=== PATIENT | female | born 1995 | race African-American/Black ===

== ENCOUNTER 2018-01-03 22:29 | Emergency (ER) | payer OTHER ==
[2018-01-03] MEDS ORDERED: NEOMY/POLY/HC 1% OTIC DROPS ONE (23:07)
[2018-01-03] MEDS ORDERED: FENTANYL CITR 100 MCG/2 ML ONE (23:08)
[2018-01-03 23:31] LABS: Urine Bacteria <20 /HPF (<20); Urine Culture Reflex Order NOT NEEDED; Urine Mucus 3+ /HPF (NONE SEEN); Urine RBC <5 /HPF (NONE SEEN)
--- NOTE | 2018-01-04 00:07 | ER ---
Nurse's Notes [facility] Name: Tamiko Campo Age: 22 yrs Sex: Female : 1995 Arrival Date: 01/03/2018 Time: 22:30 Bed 14 Private MD: Diagnosis: Low back pain;Acute contact otitis externa-right with TM rupture Presentation: 01/03 22:52 Presenting complaint: Patient states: R low back pain and R ear pain x 2-3 days. aa1 States, "My back pain started after carrying my daughter around on a harness all day but my ear only hurts when I put my finger in it." Denies fever. Transition of care: patient was not received from another setting of care. Onset of symptoms was January 01, 2018. Risk Assessment: Do you want to hurt yourself or someone else? Patient reports no desire to harm self or others. Initial Sepsis Screen: Does the patient meet any 2 criteria? No. Patient's initial sepsis screen is negative. Does the patient have a suspected source of infection? No. Patient's initial sepsis screen is negative. Care prior to arrival: None. 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 - Social history:: Smoking status: Patient/guardian denies using tobacco. - Ebola Screening: : No symptoms or risks identified at this time. Screenin:55 Abuse screen: Denies threats or abuse. Denies injuries from another. Nutritional aa1 screening: No deficits noted. Tuberculosis screening: No symptoms or risk factors identified. Fall Risk None identified. Assessment: 22:55 General: Appears in no apparent distress. uncomfortable, Behavior is calm, cooperative, aa1 appropriate for age. Pain: Complains of pain in right mid back and right ear Pain began 2-3 days ago. Neuro: Level of Consciousness is awake, alert, obeys commands, Oriented to person, place, time, situation, Moves all extremities. Full function Gait is steady. Respiratory: Airway is patent Respiratory effort is even, unlabored, Respiratory pattern is regular, symmetrical. GI: No signs and/or symptoms were reported involving the gastrointestinal system. : Denies burning with urination, inability to void, pain with urination. EENT: Reports pain in right ear. Derm: Skin is intact, is healthy with good turgor, Skin is pink, warm \\T\\ dry. Musculoskeletal: Circulation, motion, and sensation intact. Capillary refill < 3 seconds, Range of motion: intact in all extremities. 01/04 00:15 Reassessment: Patient appears in no apparent distress at this time. Patient is alert, aa1 oriented x 3, equal unlabored respirations, skin warm/dry/pink. Discussed d/c \\T\\ f/u instructions with pt \\T\\ friend; denies questions or concerns at this time Patient states feeling better. Patient states symptoms have improved. Vital Signs: 01/03 22:55 BP 133 / 91; Pulse 86; Resp 16; Temp 98.5; Pulse Ox 100% on R/A; Weight 79.38 kg; aa1 Height 5 ft. 6 in. (167.64 cm); Pain 8/10; 01/04 00:15 BP 119 / 76; Pulse 81; Resp 16; Pulse Ox 100% on R/A; Pain 3/10; aa1 01/03 22:55 Body Mass Index 28.25 (79.38 kg, 167.64 cm) aa1 ED Course: 08 22:30 Patient arrived in ED. am2 22:40 Claire Daniels FNP-C is [facility]. snw 22:40 Ras Vazquez MD is Attending Physician. snw 22:51 Gypsy Palomino, PANKAJ is Primary Nurse. aa1 22:54 Triage completed. aa1 22:55 Arm band placed on right wrist. Patient placed in an exam room, on a stretcher. aa1 22:55 Patient has correct armband on for positive identification. Bed in low position. Call aa1 light in reach. Pulse ox on. NIBP on. 23:07 Urine collected: clean catch specimen. aa1 01/04 00:15 No provider procedures requiring assistance completed. Patient did not have IV access aa1 during this emergency room visit. Administered Medications: 01/03 23:10 Drug: fentaNYL (PF) 25 mcg Route: IM; Site: right gluteus; aa1 01/04 00:15 Follow up: Response: No adverse reaction; Pain is decreased aa01/03 23:10 Drug: Cortisporin Drops 4 drops Route: Otic; Site: right ear; aa1 01/04 00:10 Not Given (changed order): TORadol 60 mg IM once snw Outcome: 00:07 Discharge ordered by MD. snw 00:15 Discharged to home ambulatory, with friend. aa1 00:15 Condition: good 00:15 Discharge instructions given to patient, friend, Instructed on discharge instructions, follow up and referral plans. medication usage, Demonstrated understanding of instructions, follow-up care, medications, Prescriptions given X 3. 00:17 Patient left the ED. aa1 Signatures: Gypsy Palomino RN RN aa1 Claire Daniels, VESSEL CREW MEMBER-C VESSEL CREW MEMBER-Csnw Danielle Napoles
--- NOTE | 2018-01-04 00:07 | EDPHYS ---
Physician Documentation [facility] Name: Tamiko Campo Age: 22 yrs Sex: Female : 1995 Arrival Date: 01/03/2018 Time: 22:30 Bed 14 Private MD: ED Physician Ras Vazquez HPI: 01/03 23:00 This 22 yrs old Black Female presents to ER via Ambulatory with complaints of Ear Pain, snw Back Pain. 23:00 The patient presents with swelling, tenderness. The complaints affect the right ear. snw Onset: The symptoms/episode began/occurred 3 day(s) ago, and became persistent. Associated signs and symptoms: Pertinent positives: also c/o right flank/back pain. Severity of symptoms: At their worst the symptoms were moderate in the emergency department the symptoms are unchanged. The patient has experienced similar episodes in the past. The patient has not recently seen a physician. pt no longer , was seen per ENT in [place] a few months ago and was using Ciprodex but it was stopped second to allergy to the drop. 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 - Social history:: Smoking status: Patient/guardian denies using tobacco. - Ebola Screening: : No symptoms or risks identified at this time. ROS: 22:57 Constitutional: Negative for fever, chills, and weight loss, Eyes: Negative for injury, snw pain, redness, and discharge, Neck: Negative for injury, pain, and swelling, Cardiovascular: Negative for chest pain, palpitations, and edema, Respiratory: Negative for shortness of breath, cough, wheezing, and pleuritic chest pain, Abdomen/GI: Negative for abdominal pain, nausea, vomiting, diarrhea, and constipation, : Negative for injury, bleeding, discharge, and swelling, MS/Extremity: Negative for injury and deformity, Skin: Negative for injury, rash, and discoloration, Neuro: Negative for headache, weakness, numbness, tingling, and seizure. 22:57 ENT: Positive for drainage from ear(s), ear pain, of the right ear. 22:57 Back: Positive for pain at rest, pain with movement, flank pain, of the right mid back, unaware if it is kidney or muscle, pt states the pain started the day after using baby carrier with her daughter. Exam: 22:57 Constitutional: This is a well developed, well nourished patient who is awake, alert, snw and in no acute distress. Head/Face: Normocephalic, atraumatic. Eyes: Pupils equal round and reactive to light, extra-ocular motions intact. Lids and lashes normal. Conjunctiva and sclera are non-icteric and not injected. Cornea within normal limits. Periorbital areas with no swelling, redness, or edema. Neck: Trachea midline, no thyromegaly or masses palpated, and no cervical lymphadenopathy. Supple, full range of motion without nuchal rigidity, or vertebral point tenderness. No Meningismus. Chest/axilla: Normal chest wall appearance and motion. Nontender with no deformity. No lesions are appreciated. Cardiovascular: Regular rate and rhythm with a normal S1 and S2. No gallops, murmurs, or rubs. Normal PMI, no JVD. No pulse deficits. Respiratory: Lungs have equal breath sounds bilaterally, clear to auscultation and percussion. No rales, rhonchi or wheezes noted. No increased work of breathing, no retractions or nasal flaring. Abdomen/GI: Soft, non-tender, with normal bowel sounds. No distension or tympany. No guarding or rebound. No evidence of tenderness throughout. Skin: Warm, dry with normal turgor. Normal color with no rashes, no lesions, and no evidence of cellulitis. MS/ Extremity: Pulses equal, no cyanosis. Neurovascular intact. Full, normal range of motion. Neuro: Awake and alert, GCS 15, oriented to person, place, time, and situation. Cranial nerves II-XII grossly intact. Motor strength 5/5 in all extremities. Sensory grossly intact. Cerebellar exam normal. Normal gait. 22:57 ENT: Ear canal(s): erythema, clear serous fluid, tenderness to inspection with speculum, TM's: rupture, on the right, Nose: is normal, Mouth: is normal, Voice: is normal. 22:57 Back: pain, that is moderate, ROM is painful, CVA tenderness, that is moderate, is noted on the right. Vital Signs: 22:55 BP 133 / 91; Pulse 86; Resp 16; Temp 98.5; Pulse Ox 100% on R/A; Weight 79.38 kg; aa1 Height 5 ft. 6 in. (167.64 cm); Pain 8/10; 01/04 00:15 BP 119 / 76; Pulse 81; Resp 16; Pulse Ox 100% on R/A; Pain 3/10; aa1 01/03 22:55 Body Mass Index 28.25 (79.38 kg, 167.64 cm) aa1 MDM: 01/03 22:55 Patient medically screened. snw 01/04 00:05 Data reviewed: vital signs, nurses notes. Data interpreted: Pulse oximetry: on room air snw is 100 %. Interpretation: normal. Counseling: I had a detailed discussion with the patient and/or guardian regarding: the historical points, exam findings, and any diagnostic results supporting the discharge/admit diagnosis, the presence of at least one elevated blood pressure reading (>120/80) during this emergency department visit, lab results, the need for outpatient follow up, to return to the emergency department if symptoms worsen or persist or if there are any questions or concerns that arise at home. Response to treatment: the patient's symptoms have markedly improved after treatment. Special discussion: I have referred the patient to see his PCP for further evaluation of high blood pressure. Based on the history and exam findings, there is no indication for further emergent testing or inpatient evaluation. I discussed with the patient/guardian the need to see the ENT specialist for further evaluation of the symptoms. I discussed with the patient/guardian the need to see the primary care provider for further evaluation of the symptoms. 01/03 22:57 Order name: Urine Culture [facility] 01/03 22:57 Order name: Urine Microscopic Only; Complete Time: 23:35 [facility] 01/03 23:22 Order name: Urine Dipstick--Ancillary (enter results) [facility] 01/03 23:22 Order name: Urine --Ancillary (enter results) [facility] 01/03 22:56 Order name: [facility] [place]. Order: cortisporin suspension 4gtts to right ear canal; Complete snw Time: 23:19 01/03 22:56 Order name: Urine Test (obtain specimen); Complete Time: 23:19 snw 01/03 22:56 Order name: Urine Dipstick-Ancillary (obtain specimen); Complete Time: 23:19 snw Administered Medications: 01/03 23:10 Drug: fentaNYL (PF) 25 mcg Route: IM; Site: right gluteus; aa1 01/04 00:15 Follow up: Response: No adverse reaction; Pain is decreased aa01/03 23:10 Drug: Cortisporin Drops 4 drops Route: Otic; Site: right ear; aa1 01/04 00:10 Not Given (changed order): TORadol 60 mg IM once snw Disposition: 03:35 Co-signature as Attending Physician, Ras Vazquez MD. harshil Disposition: 01/04/18 00:07 Discharged to Home. Impression: Low back pain, Acute contact otitis externa - right with TM rupture. - Condition is Stable. - Discharge Instructions: Back Pain, Adult, Otitis Externa, Hypertension, Musculoskeletal Pain, Cryotherapy, Rehydration, Adult, Heat Therapy. - Prescriptions for Cortisporin- TC 3.3-3-10-0.5 mg/mL Otic Suspension - instill 4 drop by OTIC route every 6 hours; 1 bottle. Diclofenac Sodium 75 mg Oral Tablet Sustained Release - take 1 tablet by ORAL route 2 times per day; 30 tablet. orphenadrine citrate 100 mg Oral Tablet Sustained Release - take 1 tablet by ORAL route 2 times per day As needed; 20 tablet. - Work release form, Medication Reconciliation Form, Thank You Letter, Antibiotic Education, Prescription Opioid Use form. - Follow up: Emergency Department; When: As needed; Reason: Worsening of condition. Follow up: Private Physician; When: 2 - 3 days; Reason: Recheck today's complaints, Continuance of care, Re-evaluation by your physician. Signatures: Dispatcher [employer] EDGypsy Felipe RN RN aa1 Ras Vazquez MD MD pkClaire Dinh FNP-C SOFTWARE PRODUCT MANAGER-Csnw Corrections: (The following items were deleted from the chart) 00:17 00:07 01/04/2018 00:07 Discharged to Home. Impression: Low back pain; Acute contact aa1 otitis externa - right with TM rupture. Condition is Stable. Forms are Medication Reconciliation Form, Thank You Letter, Antibiotic Education, Prescription Opioid Use. Follow up: Emergency Department; When: As needed; Reason: Worsening of condition. Follow up: Private Physician; When: 2 - 3 days; Reason: Recheck today's complaints, Continuance of care, Re-evaluation by your physician. snw
[2018-01-04 00:21] VITALS: TEMP 98.5; O2SAT 100
[2018-01-04 00:22] VITALS: BP 119/76
[2018-01-04 00:27] LABS: Urine Blood 2+ (NEG); Urine Glucose NEGATIVE (NEG); Urine Protein 1+ (NEG); Urine Specific Gravity >1.030 (1.005-1.030); Urine pH 5.5 (5.0-7.0)
== END 2018-01-04 00:17 | disposition home or self-care (01) ==
LOC: ER 22:29
DX: M54.5 Low back pain (principal); H60.531 Acute contact otitis externa, right ear; H72.91 Unspecified perforation of tympanic membrane, right ear; Z88.1 Allergy status to other antibiotic agents
CPT/HCPCS: 81003; 81015; 81025; 87077; 87086; 87088; 87186; 96372; 99284; J3010

== ENCOUNTER 2018-01-19 07:21 | Emergency (ER) | payer OTHER ==
--- NOTE | 2018-01-19 07:56 | EDPHYS ---
Physician Documentation [facility] Name: Tamiko Campo Age: 22 yrs Sex: Female : 1995 Arrival Date: 01/19/2018 Time: 07:25 Bed 20 Private MD: None, None ED Physician Dean Hernandez HPI: 01/19 07:40 This 22 yrs old Black Female presents to ER via Ambulatory with complaints of Ear Pain. cp 07:40 The patient presents with drainage, that is purulent, a fullness. The complaints affect cp the right ear. 07:40 Associated signs and symptoms: Pertinent positives: sore throat, Pertinent negatives: cp cough, fever, sinus trouble, vomiting. Severity of symptoms: in the emergency department the symptoms are unchanged. 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 - Social history:: Smoking status: Patient/guardian denies using tobacco. - Ebola Screening: : Patient negative for fever greater than or equal to 101.5 degrees Fahrenheit, and additional compatible Ebola Virus Disease symptoms. ROS: 07:45 Constitutional: Negative for body aches, chills, fever, poor PO intake. cp 07:45 Eyes: Negative for injury, pain, redness, and discharge. cp 07:45 ENT: Positive for drainage from ear(s), ear pain, sore throat, Negative for rhinorrhea, difficulty swallowing, difficulty handling secretions. 07:45 Neck: Negative for pain with movement, pain at rest, stiffness, tenderness. 07:45 Respiratory: Negative for cough, wheezing. 07:45 Abdomen/GI: Negative for abdominal pain, nausea, vomiting, and diarrhea. 07:45 Skin: Negative for cellulitis, rash. 07:45 Neuro: Negative for headache. 07:45 All other systems are negative. Exam: 07:50 Constitutional: The patient appears in no acute distress, alert, awake, non-toxic, well cp developed, well nourished. 07:50 Head/Face: Normocephalic, atraumatic. cp 07:50 Eyes: Periorbital structures: appear normal, Conjunctiva: normal, no exudate, no injection, Lids and lashes: appear normal, bilaterally. 07:50 ENT: External ear(s): are unremarkable, Ear canal(s): purulent discharge, that is moderate, in the right canal, TM's: not visable, because of discharge, Examination of the other ear shows no obvious abnormality, Nose: is normal, Mouth: is normal, Posterior pharynx: is normal, airway is patent. 07:50 Neck: ROM/movement: is normal, is supple, without pain, no range of motions limitations, no nuchal rigidity, Lymph nodes: no appreciated lymphadenopathy. 07:50 Chest/axilla: Inspection: normal. 07:50 Cardiovascular: Rate: normal. 07:50 Respiratory: the patient does not display signs of respiratory distress, Respirations: normal, no use of accessory muscles, no retractions, no splinting, no tachypnea. 07:50 Skin: cellulitis, is not appreciated, no rash present. Vital Signs: 07:30 BP 113 / 68; Pulse 67; Resp 16; Temp 98.2(O); Pulse Ox 100% on R/A; Weight 74.84 kg; rb1 Height 5 ft. 6 in. (167.64 cm) (R); Pain 6/10; 07:30 Body Mass Index 26.63 (74.84 kg, 167.64 cm) rb1 MDM: 07:30 Patient medically screened. cp 07:50 Differential diagnosis: otitis media, otitis externa, ruptured TM, foreign body, cp cerumen impaction. 07:54 Data reviewed: vital signs, nurses notes, old medical records, notes from previous ED cp visits and as a result, I will discharge patient. Administered Medications: No medications were administered Disposition: 01/20 02:39 Co-signature as Attending Physician, Dean Hernandez MD I agree with the assessment and tw4 plan of care. Attestation: The patient's history, exam findings, diagnostics, and a summary of any interventions or procedures was reviewed in detail with Natalio ROCHE. Disposition: 01/19/18 07:55 Discharged to Home. Impression: Acute suppurative otitis media with spontaneous rupture of ear drum, right ear. - Condition is Stable. - Discharge Instructions: Otitis Media, Adult. - Prescriptions for Augmentin 875- 125 mg Oral Tablet - take 1 tablet by ORAL route every 12 hours for 10 days; 20 tablet. - Medication Reconciliation Form, Thank You Letter, Antibiotic Education, Prescription Opioid Use form. - Follow up: Catalina Posadas MD; When: 2 - 3 days; Reason: Recheck today's complaints. - Problem is new. - Symptoms are unchanged. Signatures: Natalio Beltran PA PA cp Barber, Rebecca, RN RN rb1 Dean Hernandez MD MD tw4 Corrections: (The following items were deleted from the chart) 01/19 08:02 07:55 01/19/2018 07:55 Discharged to Home. Impression: Acute suppurative otitis media rb1 with spontaneous rupture of ear drum, right ear. Condition is Stable. Forms are Medication Reconciliation Form, Thank You Letter, Antibiotic Education, Prescription Opioid Use. Follow up: Catalina Posadas; When: 2 - 3 days; Reason: Recheck today's complaints. Problem is new. Symptoms are unchanged. cp
--- NOTE | 2018-01-19 07:56 | ER ---
Nurse's Notes [facility] Name: Tamiko Campo Age: 22 yrs Sex: Female : 1995 Arrival Date: 01/19/2018 Time: 07:25 Bed 20 Private MD: None, None Diagnosis: Acute suppurative otitis media with spontaneous rupture of ear drum, right ear Presentation: 01/19 07:30 Presenting complaint: Patient states: C/o right ear pain, pt. thinks her ear drum rb1 ruptured. Transition of care: patient was not received from another setting of care. Onset of symptoms is unknown. Risk Assessment: Do you want to hurt yourself or someone else? Patient reports no desire to harm self or others. Initial Sepsis Screen: Does the patient meet any 2 criteria? No. Patient's initial sepsis screen is negative. Does the patient have a suspected source of infection? No. Patient's initial sepsis screen is negative. Care prior to arrival: None. 07:30 Method Of Arrival: Ambulatory rb1 07:30 Acuity: MARCY 4 rb1 Triage Assessment: 07:30 General: Appears in no apparent distress. comfortable, Behavior is calm, cooperative. rb1 Pain: Complains of pain in right ear Pain currently is 6 out of 10 on a pain scale. EENT: Reports pain when swallowing. Neuro: Level of Consciousness is awake, alert, obeys commands, Oriented to person, place, time, situation. Cardiovascular: Capillary refill < 3 seconds is brisk in bilateral fingers. Respiratory: Airway is patent Respiratory effort is even, unlabored, Respiratory pattern is regular, symmetrical. GI: No signs and/or symptoms were reported involving the gastrointestinal system. : No signs and/or symptoms were reported regarding the genitourinary system. Derm: Skin is dry, Skin is normal, Skin temperature is warm. 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 - Social history:: Smoking status: Patient/guardian denies using tobacco. - Ebola Screening: : Patient negative for fever greater than or equal to 101.5 degrees Fahrenheit, and additional compatible Ebola Virus Disease symptoms. Screenin:30 Abuse screen: Denies threats or abuse. Nutritional screening: No deficits noted. rb1 Tuberculosis screening: No symptoms or risk factors identified. Fall Risk None identified. Assessment: 07:30 General: See triage assessment. rb1 Vital Signs: 07:30 BP 113 / 68; Pulse 67; Resp 16; Temp 98.2(O); Pulse Ox 100% on R/A; Weight 74.84 kg; rb1 Height 5 ft. 6 in. (167.64 cm) (R); Pain 6/10; 07:30 Body Mass Index 26.63 (74.84 kg, 167.64 cm) rb1 ED Course: 07:25 Patient arrived in ED. sb2 07:25 None, None is Private Physician. sb2 07:30 Natalio Beltran PA is PHCP. cp 07:30 Dean Hernandez MD is Attending Physician. cp 07:30 Arm band placed on right wrist. rb1 07:30 Patient has correct armband on for positive identification. Bed in low position. Call rb1 light in reach. Side rails up X 1. Pulse ox on. NIBP on. 07:37 Olivia Blackwell, RN is Primary Nurse. rb1 07:39 Triage completed. rb1 07:55 Catalina Posadas MD is Referral Physician. cp 08:01 No provider procedures requiring assistance completed. Patient did not have IV access rb1 during this emergency room visit. Administered Medications: No medications were administered Outcome: 07:55 Discharge ordered by . cp 08:01 Discharged to home ambulatory. rb1 08:01 Condition: stable 08:01 Discharge instructions given to patient, Instructed on discharge instructions, follow up and referral plans. medication usage, Demonstrated understanding of instructions, follow-up care, medications, Prescriptions given X 1. 08:02 Patient left the ED. rb1 Signatures: Natalio Beltran PA PA cp Olivia Blackwell, RN RN rb1 Ibeth Quiros sb2
[2018-01-19 08:07] VITALS: BP 113/68; TEMP 98.2; O2SAT 100
== END 2018-01-19 08:02 | disposition home or self-care (01) ==
LOC: ER 07:21
DX: H66.011 Acute suppurative otitis media with spontaneous rupture of ear drum, right ear (principal); Z88.1 Allergy status to other antibiotic agents
CPT/HCPCS: 99283

== ENCOUNTER 2018-04-25 10:14 | Emergency (ER) | payer OTHER ==
[2018-04-25] MEDS ORDERED: KETOROLAC 30 MG/ML INJ ONE (11:07)
[2018-04-25 11:21] LABS: Urine Blood 3+ (NEG); Urine Glucose NEGATIVE (NEG); Urine Protein 2+ (NEG)
[2018-04-25 11:28] LABS: Urine Bacteria 20-50 /HPF (<20); Urine Culture Reflex Order REFLEXED
--- NOTE | 2018-04-25 11:45 | EDPHYS ---
Physician Documentation [facility] Name: Tamiko Campo Age: 22 yrs Sex: Female : 1995 Arrival Date: 04/25/2018 Time: 10:18 Bed 13 Private MD: None, None ED Physician Natalio Hansen HPI: 04/25 10:39 This 22 yrs old Black Female presents to ER via Ambulatory with complaints of Back Pain.cp 10:39 The patient presents with pain that is acute, with no known mechanism of injury. The cp symptoms are located in the low back. Onset: The symptoms/episode began/occurred 5 day(s) ago. The pain does not radiate. Associated signs and symptoms: Pertinent positives: urinary frequency, Pertinent negatives: abdominal pain, chest pain, constipation, dysuria, fever, hematuria, incontinence, numbness, urinary retention, weakness. The problem was sustained from unknown cause. 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 - Social history:: Smoking status: Patient/guardian denies using tobacco, Patient/guardian denies using alcohol. - Ebola Screening: : Patient negative for fever greater than or equal to 101.5 degrees Fahrenheit, and additional compatible Ebola Virus Disease symptoms Patient denies exposure to infectious person Patient denies travel to an Ebola-affected area in the 21 days before illness onset. ROS: 10:40 Eyes: Negative for injury, pain, redness, and discharge. cp 10:40 Constitutional: Negative for body aches, chills, fever, poor PO intake. 10:40 ENT: Negative for drainage from ear(s), ear pain, sore throat, difficulty swallowing, difficulty handling secretions. 10:40 Cardiovascular: Negative for chest pain, edema, palpitations. 10:40 Respiratory: Negative for cough, shortness of breath, wheezing. 10:40 Abdomen/GI: Negative for abdominal pain, nausea, vomiting, and diarrhea, constipation, black/tarry stool, rectal bleeding. 10:40 Back: Positive for pain at rest, of the low back area, Negative for injury or acute deformity, decreased range of motion. 10:40 : Positive for urinary frequency, vaginal bleeding, Negative for burning with urination, difficulty urinating, bladder incontinence. 10:40 MS/extremity: Negative for injury or acute deformity, decreased range of motion, paresthesias. 10:40 Skin: Negative for cellulitis, rash. 10:40 Neuro: Negative for altered mental status, dizziness, headache, numbness, weakness. 10:40 All other systems are negative. Exam: 10:45 Constitutional: The patient appears in no acute distress, alert, awake, well developed, cp well nourished. 10:45 Head/Face: Normocephalic, atraumatic. cp 10:45 Eyes: Periorbital structures: appear normal, Conjunctiva: normal, no exudate, no injection, Lids and lashes: appear normal, bilaterally. 10:45 ENT: External ear(s): are unremarkable, Nose: is normal, Mouth: Lips: moist, Oral mucosa: moist, Posterior pharynx: is normal, airway is patent, no erythema, no exudate. 10:45 Neck: ROM/movement: is normal, is supple, without pain, no range of motions limitations, no nuchal rigidity. 10:45 Chest/axilla: Inspection: normal, Palpation: is normal, no crepitus, no tenderness. 10:45 Cardiovascular: Rate: normal, Rhythm: regular. 10:45 Respiratory: the patient does not display signs of respiratory distress, Respirations: normal, no use of accessory muscles, no retractions, no splinting, no tachypnea, Breath sounds: are clear throughout, no decreased breath sounds, no stridor, no wheezing. 10:45 Abdomen/GI: Inspection: abdomen appears normal, Palpation: abdomen is soft and non-tender, in all quadrants. 10:45 Back: pain, that is mild, of the low back area, ROM is normal, Straight leg raises: of both lower extremities does not illicit pain. 10:45 Musculoskeletal/extremity: Exam is negative for decreased range of motion, deformity, injury. 10:45 Skin: cellulitis, is not appreciated, no rash present. 10:45 Neuro: Orientation: to person, place \T\ time. Mentation: is normal, Motor: moves all fours, strength is normal, Sensation: is normal, Gait: is steady. Vital Signs: 10:38 BP 126 / 98; Pulse 89; Resp 18; Temp 98.1(O); Pulse Ox 97% on R/A; Weight 65.77 kg; hj Height 5 ft. 5 in. (165.10 cm); Pain 10; 12:03 BP 125 / 90; Pulse 85; Resp 18; Pulse Ox 100% on R/A; hj 10:38 Body Mass Index 24.13 (65.77 kg, 165.10 cm) hj MDM: 10:32 Patient medically screened. cody 11:44 Data reviewed: vital signs, nurses notes, lab test result(s), and as a result, I will cp discharge patient. 11:44 Counseling: I had a detailed discussion with the patient and/or guardian regarding: the cp historical points, exam findings, and any diagnostic results supporting the discharge/admit diagnosis, lab results, the need for outpatient follow up, a family practitioner, to return to the emergency department if symptoms worsen or persist or if there are any questions or concerns that arise at home. 04/25 10:54 Order name: Urine Microscopic Only; Complete Time: 11:42 cp 04/25 11:42 Interpretation: Normal except: UWBC >50; URBC 5-10; UBACT 20-50; SQEPI 10-20. 04/25 11:03 Order name: Urine Dipstick--Ancillary (enter results); Complete Time: 11:23 eb 04/25 11:23 Interpretation: Normal except: UBLD 3+; UPROT 2+; UESTR 3+. cp 04/25 10:38 Order name: Urine Dipstick-Ancillary (obtain specimen); Complete Time: 11:05 cp 04/25 11:03 Order name: Urine --Ancillary (enter results); Complete Time: 11:23 eb 04/25 11:30 Order name: Urine Culture EDMS 04/25 10:38 Order name: Urine Test (obtain specimen); Complete Time: 11:05 cp Administered Medications: 11:05 Drug: TORadol 60 mg Route: IM; Site: right gluteus; hj 12:00 Follow up: Response: No adverse reaction; Pain is decreased hj Disposition: 04/26 08:14 Co-signature as Attending Physician, Natalio Hansen MD I agree with the assessment and cody plan of care. Disposition: 04/25/18 11:45 Discharged to Home. Impression: Low back pain. - Condition is Stable. - Discharge Instructions: Back Pain, Adult, Back Exercises. - Prescriptions for Anaprox DS 550 mg Oral Tablet - take 1 tablet by ORAL route every 12 hours As needed; 20 tablet. Macrobid 100 mg Oral Capsule - take 1 capsule by ORAL route every 12 hours for 7 days; 14 capsule. - Medication Reconciliation Form, Thank You Letter, Antibiotic Education, Prescription Opioid Use form. - Follow up: Private Physician; When: 2 - 3 days; Reason: pain continues. - Problem is new. - Symptoms have improved. Signatures: Dispatcher [employer] EDNatalio Shay MD MD cha Joaquin, Henry RN RN hj Natalio Beltran PA PA cp Corrections: (The following items were deleted from the chart) 04/25 12:01 11:45 04/25/2018 11:45 Discharged to Home. Impression: Low back pain. Condition is hj Stable. Forms are Medication Reconciliation Form, Thank You Letter, Antibiotic Education, Prescription Opioid Use. Follow up: Private Physician; When: 2 - 3 days; Reason: pain continues. Problem is new. Symptoms have improved. cp
--- NOTE | 2018-04-25 11:45 | ER ---
Nurse's Notes [facility] Name: Tamiko Campo Age: 22 yrs Sex: Female : 1995 Arrival Date: 04/25/2018 Time: 10:18 Bed 13 Private MD: None, None Diagnosis: Low back pain Presentation: 04/25 10:35 Presenting complaint: Patient states: since Thursday i had this pain on my lower back, hj on both sides, i have history of kidney infection or muscle aches; denies fever and chills, denies N/V;. Transition of care: patient was not received from another setting of care. Onset of symptoms was April 25, 2018. Risk Assessment: Do you want to hurt yourself or someone else? Patient reports no desire to harm self or others. Initial Sepsis Screen: Does the patient meet any 2 criteria? No. Patient's initial sepsis screen is negative. Does the patient have a suspected source of infection? No. Patient's initial sepsis screen is negative. Care prior to arrival: None. 10:35 Method Of Arrival: Ambulatory 10:35 Acuity: MARCY 3 Triage Assessment: 10:38 General: Appears in no apparent distress. uncomfortable, Behavior is calm, cooperative, hj appropriate for age. Pain: Complains of pain in left low back and right low back. Musculoskeletal: Circulation, motion, and sensation intact. Capillary refill < 3 seconds, Range of motion: intact in all extremities. 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 - Social history:: Smoking status: Patient/guardian denies using tobacco, Patient/guardian denies using alcohol. - Ebola Screening: : Patient negative for fever greater than or equal to 101.5 degrees Fahrenheit, and additional compatible Ebola Virus Disease symptoms Patient denies exposure to infectious person Patient denies travel to an Ebola-affected area in the 21 days before illness onset. Screenin:38 Abuse screen: Denies threats or abuse. Denies injuries from another. Nutritional hj screening: No deficits noted. Tuberculosis screening: No symptoms or risk factors identified. Fall Risk None identified. Vital Signs: 10:38 BP 126 / 98; Pulse 89; Resp 18; Temp 98.1(O); Pulse Ox 97% on R/A; Weight 65.77 kg; hj Height 5 ft. 5 in. (165.10 cm); Pain 5/10; 12:03 BP 125 / 90; Pulse 85; Resp 18; Pulse Ox 100% on R/A; hj 10:38 Body Mass Index 24.13 (65.77 kg, 165.10 cm) ED Course: 10:18 Patient arrived in ED. mr 10:18 None, None is Private Physician. mr 10:31 Natalio Beltran PA is PHCP. cp 10:32 Natalio Hansen MD is Attending Physician. cp 10:35 Deon Maza, RN is Primary Nurse. hj 10:37 Triage completed. hj 10:38 Arm band placed on right wrist. hj 10:40 Patient has correct armband on for positive identification. Bed in low position. Call hj light in reach. Side rails up X 1. 11:05 Urine Microscopic Only Sent. hj 12:00 No provider procedures requiring assistance completed. Patient did not have IV access hj during this emergency room visit. Administered Medications: 11:05 Drug: TORadol 60 mg Route: IM; Site: right gluteus; hj 12:00 Follow up: Response: No adverse reaction; Pain is decreased Outcome: 11:45 Discharge ordered by MD. cp 12:01 Discharged to home ambulatory. hj 12:01 Condition: stable 12:01 Discharge instructions given to patient, Instructed on discharge instructions, follow up and referral plans. medication usage, Demonstrated understanding of instructions, follow-up care, medications, Prescriptions given X 2. 12:01 Patient left the ED. hj Addendum: 04/29/2018 07:15 Addendum: Culture Results: Positive urine culture. No further action required. Bacteria i w sensitive to prescribed antibiotic. Signatures: Sara Roberto Rosalia Stallworth RN RN Deon Maza RN RN Natalio Beltran PA PA cp
[2018-04-25 12:17] VITALS: BP 126/98; TEMP 98.1; O2SAT 97
== END 2018-04-25 12:01 | disposition home or self-care (01) ==
LOC: ER 10:14
DX: M54.5 Low back pain (principal)
CPT/HCPCS: 81003; 81015; 81025; 87077; 87086; 87088; 87186; 96372; 99283

== ENCOUNTER 2018-05-29 02:35 | Emergency (ER) | payer OTHER ==
--- NOTE | 2018-05-29 02:56 | ER ---
Nurse's Notes [facility] Name: Tamiko Campo Age: 22 yrs Sex: Female : 1995 Arrival Date: 05/29/2018 Time: 02:39 Bed 23 Private MD: Yamile Castro Diagnosis: Hordeolum externum Presentation: 05/29 02:53 Presenting complaint: Patient states: she has a swollen left lower eyelid pt was seen bb at Urgent Care today and given eye drops Tobramycin and Bactrim but lid is still swollen and painful. Transition of care: patient was not received from another setting of care. Onset of symptoms was May 27, 2018. Risk Assessment: Do you want to hurt yourself or someone else? Patient reports no desire to harm self or others. Initial Sepsis Screen: Does the patient meet any 2 criteria? No. Patient's initial sepsis screen is negative. Does the patient have a suspected source of infection? No. Patient's initial sepsis screen is negative. Care prior to arrival: None. 02:53 Method Of Arrival: Ambulatory bb 02:53 Acuity: MARCY 4 bb RN HEDIS: 02:55 LMP 05/20/2018 bb Historical: - Allergies: 02:55 Cipro; bb - PSHx: 02:55 ; bb - Immunization history:: Adult Immunizations up to date. - Social history:: Smoking status: unknown. - Ebola Screening: : No symptoms or risks identified at this time. Screenin:56 Abuse screen: Denies threats or abuse. Nutritional screening: No deficits noted. bb Tuberculosis screening: No symptoms or risk factors identified. Fall Risk None identified. Assessment: 02:56 General: Appears in no apparent distress. uncomfortable, Behavior is calm, cooperative. bb Pain: Complains of pain in left lower lid Pain currently is 5 out of 10 on a pain scale. Neuro: Level of Consciousness is awake, alert, obeys commands, Oriented to person, place, time, situation. Cardiovascular: No deficits noted. Respiratory: Respiratory effort is even, unlabored. GI: No signs and/or symptoms were reported involving the gastrointestinal system. EENT: Eyes swelling, redness to left lower lid with drainage. Musculoskeletal: Circulation, motion, and sensation intact. 02:58 Reassessment: Kali ROCHE at bedside for evaluation and expressed pus from left lower bb lid pt tolerated poorly. 03:08 Reassessment: Patient is alert, oriented x 3, equal unlabored respirations, skin bb warm/dry/pink. pt verbalized understanding of and agrees to plan of care discharge instructions given pt ambulated with steady gait to exit. Vital Signs: 02:55 BP 126 / 90; Pulse 68; Resp 16 S; Temp 99.4(O); Pulse Ox 100% on R/A; Weight 72.57 kg bb (R); Height 5 ft. 6 in. (167.64 cm) (R); Pain 5/10; 02:55 Body Mass Index 25.82 (72.57 kg, 167.64 cm) bb ED Course: 02:39 Patient arrived in ED. es 02:39 Yamile Castro MD is Private Physician. es 02:40 [facility] jr[facility] 02:40 Colin Russell MD is Attending Physician. jr8 02:54 Meng Maddox MD is Referral Physician. jr8 02:55 Triage completed. bb 02:55 Arm band placed on Patient placed in an exam room. bb 02:56 Patient has correct armband on for positive identification. Bed in low position. bb 02:56 No provider procedures requiring assistance completed. Patient did not have IV access bb during this emergency room visit. Administered Medications: 03:00 Drug: TORadol 60 mg Route: IM; Site: left gluteus; bb 03:09 Follow up: Response: No adverse reaction bb Outcome: 02:55 Discharge ordered by . jr8 03:09 Discharged to home ambulatory. bb 03:09 Condition: stable 03:09 Discharge instructions given to patient, Instructed on discharge instructions, follow up and referral plans. medication usage, wound care, Demonstrated understanding of instructions, follow-up care, medications, wound care, Prescriptions given X 1. 03:09 Patient left the ED. bb Signatures: Dipti Brown Brenda, RN RN bb Puneet Alexander PA PA jr8
--- NOTE | 2018-05-29 02:56 | EDPHYS ---
Physician Documentation [facility] Name: Tamiko Campo Age: 22 yrs Sex: Female : 1995 Arrival Date: 05/29/2018 Time: 02:39 Bed 23 Private MD: Yamile Castro ED Physician Colin Russell HPI: 05/29 03:10 This 22 yrs old Black Female presents to ER via Ambulatory with complaints of Eye jr8 Problem. 03:10 The patient is experiencing pain, redness, to the left eye. Onset: The symptoms/episode jr8 began/occurred acutely, 2 day(s) ago. Duration: the symptoms are continuous. Aggravated by blinking, pressure, rubbing, Alleviated by nothing. Associated signs and symptoms: Pertinent positives: None. Severity of symptoms: At their worst the symptoms were mild. The patient has not experienced similar symptoms in the past. The patient has been recently seen at an urgent care. Patient has stye to left eye. Saw urgent care and was given antibiotics and eye drops. Came to ED tonight for worsening of symptoms. 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 - Social history:: Smoking status: unknown. - Ebola Screening: : No symptoms or risks identified at this time. ROS: 03:10 ENT: Negative for injury, pain, and discharge, Neck: Negative for injury, pain, and jr8 swelling, Cardiovascular: Negative for chest pain, palpitations, and edema, Respiratory: Negative for shortness of breath, cough, wheezing, and pleuritic chest pain, Abdomen/GI: Negative for abdominal pain, nausea, vomiting, diarrhea, and constipation, Back: Negative for injury and pain, MS/Extremity: Negative for injury and deformity, Skin: Negative for injury, rash, and discoloration, Neuro: Negative for headache, weakness, numbness, tingling, and seizure. 03:10 Eyes: Positive for pain, redness, swelling, of the left lower eyelid. Exam: 03:10 Head/Face: Normocephalic, atraumatic. ENT: Nares patent. No nasal discharge, no jr8 septal abnormalities noted. Tympanic membranes are normal and external auditory canals are clear. Oropharynx with no redness, swelling, or masses, exudates, or evidence of obstruction, uvula midline. Mucous membranes moist. Neck: Trachea midline, no thyromegaly or masses palpated, and no cervical lymphadenopathy. Supple, full range of motion without nuchal rigidity, or vertebral point tenderness. No Meningismus. Cardiovascular: Regular rate and rhythm with a normal S1 and S2. No gallops, murmurs, or rubs. Normal PMI, no JVD. No pulse deficits. Respiratory: Lungs have equal breath sounds bilaterally, clear to auscultation and percussion. No rales, rhonchi or wheezes noted. No increased work of breathing, no retractions or nasal flaring. Skin: Warm, dry with normal turgor. Normal color with no rashes, no lesions, and no evidence of cellulitis. MS/ Extremity: Pulses equal, no cyanosis. Neurovascular intact. Full, normal range of motion. Neuro: Awake and alert, GCS 15, oriented to person, place, time, and situation. Cranial nerves II-XII grossly intact. Motor strength 5/5 in all extremities. Sensory grossly intact. Cerebellar exam normal. Normal gait. 03:10 Eyes: Periorbital structures: swelling, that is mild, on the left lower eyelid, Pupils: equal, round, and reactive to light and accomodation, Extraocular movements: intact throughout, Conjunctiva: tearing noted, in left eye, Corneas: are normal, Sclera: no appreciated abnormality, Anterior chamber: normal, Lids and lashes: stye, on the left lid, pointing noted to stye with purulent discharge . Vital Signs: 02:55 BP 126 / 90; Pulse 68; Resp 16 S; Temp 99.4(O); Pulse Ox 100% on R/A; Weight 72.57 kg bb (R); Height 5 ft. 6 in. (167.64 cm) (R); Pain 5/10; 02:55 Body Mass Index 25.82 (72.57 kg, 167.64 cm) bb MDM: 02:40 Patient medically screened. jr8 02:53 Data reviewed: vital signs, nurses notes, and as a result, I will discharge patient. jr8 Data interpreted: Pulse oximetry: on room air is 100 %. Interpretation: normal. Counseling: I had a detailed discussion with the patient and/or guardian regarding: the historical points, exam findings, and any diagnostic results supporting the discharge/admit diagnosis, the need for outpatient follow up, an opthalmologist, to return to the emergency department if symptoms worsen or persist or if there are any questions or concerns that arise at home. 03:10 ED course: Was able to lightly express out moderate amount of discharge from [facility]. Told jr8 patient to continue eye drops and oral antibiotics given. To do warm compresses for 15-20 min at a time 4-5 times a day. Follow up with ophthalmology . Administered Medications: 03:00 Drug: TORadol 60 mg Route: IM; Site: left gluteus; bb 03:09 Follow up: Response: No adverse reaction bb Disposition: 06:46 Co-signature as Attending Physician, Colin Russell MD I agree with the assessment and kdr plan of care. Disposition: 05/29/18 02:55 Discharged to Home. Impression: Hordeolum externum. - Condition is Stable. - Discharge Instructions: [facility]. - Prescriptions for Ibuprofen 800 mg Oral Tablet - take 1 tablet by ORAL route every 8 hours As needed take with food; 30 tablet. - Medication Reconciliation Form, Thank You Letter, Antibiotic Education, Prescription Opioid Use form. - Follow up: Meng Maddox MD; When: 5 - 6 days; Reason: Recheck today's complaints, Continuance of care, Re-evaluation by your physician. - Problem is new. - Symptoms have improved. Signatures: Colin Russell MD MD [facility] Elizabeth RN RN bb Puneet Alexander PA PA jr8 Corrections: (The following items were deleted from the chart) 03:09 02:55 05/29/2018 02:55 Discharged to Home. Impression: Hordeolum externum. Condition is bb Stable. Forms are Medication Reconciliation Form, Thank You Letter, Antibiotic Education, Prescription Opioid Use. Follow up: Meng Maddox; When: 5 - 6 days; Reason: Recheck today's complaints, Continuance of care, Re-evaluation by your physician. Problem is new. Symptoms have improved. jr8
[2018-05-29] MEDS ORDERED: KETOROLAC 30 MG/ML INJ ONE (03:12)
[2018-05-29 03:34] VITALS: BP 126/90; TEMP 99.4; O2SAT 100
== END 2018-05-29 03:09 | disposition home or self-care (01) ==
LOC: ER 02:35
DX: H00.015 Hordeolum externum left lower eyelid (principal)
CPT/HCPCS: 96372; 99283

== ENCOUNTER 2019-08-05 12:35 | Emergency (ER) | payer OTHER, SELFPAY ==
[2019-08-05] MEDS ORDERED: ACETAMINOPHEN 500 MG TAB ONE (14:04)
--- NOTE | 2019-08-05 14:18 | RAD REPORT ---
EXAM DESCRIPTION: CT - Head Brain Wo Cont - 08/05/2019 2:04 pm CLINICAL HISTORY: Head trauma with headache COMPARISON: None TECHNIQUE: Computed axial tomography of the head was obtained. IV contrast was not requested. All CT scans are performed using dose optimization technique as appropriate and may include automated exposure control or mA/KV adjustment according to patient size. FINDINGS: An intracranial bleed is not seen . The ventricles are normal in caliber. No extra-axial fluid collection is noted. Mild to moderate low-density areas within periventricular, deep and subcortical white matter likely r epresent ischemic changes secondary to small vessel disease. Fluid within the sinuses/ mastoids is not seen. IMPRESSION: No acute intracranial abnormality is seen. If patient's symptoms persist MRI of the bra in would be recommended.
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
[2019-08-05 15:01] LABS: Urine Blood NEGATIVE (NEG); Urine Glucose NEGATIVE (NEG); Urine Protein 2+ (NEG); Urine pH 5.5 (5.0-7.0)
[2019-08-05 16:04] VITALS: TEMP 98.5; O2SAT 100
[2019-08-05 16:06] VITALS: BP 117/69
== END 2019-08-05 15:48 | disposition home or self-care (01) ==
LOC: ER 12:35
DX: S06.0X0A Concussion without loss of consciousness, initial encounter (principal); Y04.2XXA Assault by strike against or bumped into by another person, initial encounter; Y93.9 Activity, unspecified; Y92.9 Unspecified place or not applicable; Z04.71 Encounter for examination and observation following alleged adult physical abuse; Z88.1 Allergy status to other antibiotic agents
CPT/HCPCS: 70450; 81003; 81025; 99283

== ENCOUNTER 2019-10-13 08:26 | Emergency (ER) | payer SELFPAY ==
--- NOTE | 2019-10-13 11:14 | ER ---
Nurse's Notes [facility] Name: Tamiko Campo Age: 24 yrs Sex: Female : 1995 Arrival Date: 10/13/2019 Time: 08:28 Bed 12 Private MD: None, None Diagnosis: Cellulitis and acute lymphangitis of face-left upper lid stye Presentation: 10/12 08:39 Chief complaint: Patient states: Swelling to L upper eyelid that began 2-3 days ago. ss Coronavirus screen: Proceed with normal triage. Patient denies a cough. Patient denies shortness of breath or difficulty breathing. Patient denies measured and/or subjective temperature greater than 100.4F prior to today's visit. Patient denies travel on a cruise ship or to a country the [facility] currently lists as an affected area. Patient denies contact with known and/or suspected case of COVID-19. Ebola Screen: Patient denies exposure to infectious person. Patient denies travel to an Ebola-affected area in the 21 days before illness onset. Initial Sepsis Screen: Does the patient meet any 2 criteria? No. Patient's initial sepsis screen is negative. Does the patient have a suspected source of infection? No. Patient's initial sepsis screen is negative. Risk Assessment: Do you want to hurt yourself or someone else? Patient reports no desire to harm self or others. Onset of symptoms was October 10, 2019. 08:39 Method Of Arrival: Ambulatory ss 08:39 Acuity: MARCY 5 ss Historical: - Allergies: 08:41 Cipro; ss - PMHx: 08:41 Anemia; ss - PSHx: 08:41 ; ss - Immunization history:: Adult Immunizations up to date. - Social history:: Smoking status: Patient denies any tobacco usage or history of. - Family history:: not pertinent. Screenin:39 Abuse screen: Denies threats or abuse. Denies injuries from another. Nutritional ss screening: No deficits noted. Tuberculosis screening: Never had TB. Fall Risk None identified. Assessment: 08:39 General: Appears uncomfortable, Behavior is calm, cooperative. Pain: Complains of pain ss in left cheek and left eye Pain currently is 7 out of 10 on a pain scale. Quality of pain is described as aching, tender, Pain began 2-3 days ago. Is continuous. Neuro: Level of Consciousness is awake, alert, obeys commands, Oriented to person, place, time, situation. Respiratory: Airway is patent Respiratory effort is even, unlabored, Respiratory pattern is regular, symmetrical. GI: Patient currently denies diarrhea, nausea, vomiting. EENT: Nares are clear Oral mucosa is moist. Derm: Skin is intact, is healthy with good turgor, Skin is pink, warm \T\ dry. normal. Musculoskeletal: Circulation, motion, and sensation intact. Range of motion: intact in all extremities, Swelling absent. 10:57 Reassessment: Patient appears in no apparent distress at this time. Patient and/or ss family updated on plan of care and expected duration. Pain level reassessed. Patient is alert, oriented x 3, equal unlabored respirations, skin warm/dry/pink. Vital Signs: 08:39 BP 127 / 70; Pulse 90; Resp 16; Temp 98.0(TE); Pulse Ox 100% on R/A; Weight 77.11 kg; ss Height 5 ft. 6 in. (167.64 cm); Pain 7/10; 08:39 Body Mass Index 27.44 (77.11 kg, 167.64 cm) ED Course: 08:28 Patient arrived in ED. mr 08:29 None, None is Private Physician. mr 08:39 Patient has correct armband on for positive identification. Bed in low position. Call ss light in reach. 08:41 Triage completed. ss 08:41 Arm band placed on right wrist. ss 10:17 Natalio Hansen MD is Attending Physician. cody 10:21 Corinne Talavera RN is Primary Nurse. ss 11:13 Meng Maddox MD is Referral Physician. cody 11:23 No provider procedures requiring assistance completed. Patient did not have IV access ss during this emergency room visit. Administered Medications: 11:16 Drug: Bactrim (160 mg-800 mg (DS) 1 tablet Route: PO; ss 11:51 Follow up: Response: No adverse reaction; Medication administered at discharge. Outcome: 11:13 Discharge ordered by . cody 11:23 Patient left the ED. bd 11:23 Discharged to home ambulatory. ss 11:23 Condition: good 11:23 Discharge instructions given to patient, Instructed on discharge instructions, follow up and referral plans. medication usage, Demonstrated understanding of instructions, follow-up care, medications, Prescriptions given X 1. Signatures: Abiola Valerio Corey, MD MD cha Rivera, Mary mr Smirch, Shelby, RN RN ss
--- NOTE | 2019-10-13 11:14 | EDPHYS ---
Physician Documentation [facility] Name: Tamiko Campo Age: 24 yrs Sex: Female : 1995 Arrival Date: 10/13/2019 Time: 08:28 Bed 12 Private MD: None, None ED Physician Natalio Hansen HPI: 10/12 11:09 This 24 yrs old Black Female presents to ER via Ambulatory with complaints of Facial cody Swelling. 11:09 The patient is experiencing pain, redness, The patient sustained None. to the left eye. cody Onset: The symptoms/episode began/occurred 3 day(s) ago. Duration: the symptoms are continuous. Aggravated by blinking, closing eye, opening eye, rubbing. Associated signs and symptoms: Pertinent positives: None. Pertinent negatives: None. Patient does not utilize any form of vision correction. Severity of symptoms: At their worst the symptoms were mild in the emergency department the symptoms are unchanged. The patient has not experienced similar symptoms in the past. Historical: - Allergies: 08:41 Cipro; ss - PMHx: 08:41 Anemia; ss - PSHx: 08:41 ; ss - Immunization history:: Adult Immunizations up to date. - Social history:: Smoking status: Patient denies any tobacco usage or history of. - Family history:: not pertinent. ROS: 11:09 Constitutional: Negative for fever, chills, and weight loss, ENT: Negative for injury, cody pain, and discharge, Neck: Negative for injury, pain, and swelling, Cardiovascular: Negative for chest pain, palpitations, and edema, Respiratory: Negative for shortness of breath, cough, wheezing, and pleuritic chest pain, Abdomen/GI: Negative for abdominal pain, nausea, vomiting, diarrhea, and constipation, Back: Negative for injury and pain, : Negative for injury, bleeding, discharge, and swelling, MS/Extremity: Negative for injury and deformity, Skin: Negative for injury, rash, and discoloration, Neuro: Negative for headache, weakness, numbness, tingling, and seizure, Psych: Negative for depression, anxiety, suicide ideation, homicidal ideation, and hallucinations, Allergy/Immunology: Negative for hives, rash, and allergies, Endocrine: Negative for neck swelling, polydipsia, polyuria, polyphagia, and marked weight changes. 11:09 Eyes: Positive for pain, swelling, of the left upper eyelid. Exam: 11:09 Constitutional: This is a well developed, well nourished patient who is awake, alert, cody and in no acute distress. Head/Face: Normocephalic, atraumatic. ENT: Nares patent. No nasal discharge, no septal abnormalities noted. Tympanic membranes are normal and external auditory canals are clear. Oropharynx with no redness, swelling, or masses, exudates, or evidence of obstruction, uvula midline. Mucous membranes moist. Neck: Trachea midline, no thyromegaly or masses palpated, and no cervical lymphadenopathy. Supple, full range of motion without nuchal rigidity, or vertebral point tenderness. No Meningismus. Chest/axilla: Normal chest wall appearance and motion. Nontender with no deformity. No lesions are appreciated. Cardiovascular: Regular rate and rhythm with a normal S1 and S2. No gallops, murmurs, or rubs. Normal PMI, no JVD. No pulse deficits. Respiratory: Lungs have equal breath sounds bilaterally, clear to auscultation and percussion. No rales, rhonchi or wheezes noted. No increased work of breathing, no retractions or nasal flaring. Abdomen/GI: Soft, non-tender, with normal bowel sounds. No distension or tympany. No guarding or rebound. No evidence of tenderness throughout. Back: No spinal tenderness. No costovertebral tenderness. Full range of motion. Skin: Warm, dry with normal turgor. Normal color with no rashes, no lesions, and no evidence of cellulitis. MS/ Extremity: Pulses equal, no cyanosis. Neurovascular intact. Full, normal range of motion. Neuro: Awake and alert, GCS 15, oriented to person, place, time, and situation. Cranial nerves II-XII grossly intact. Motor strength 5/5 in all extremities. Sensory grossly intact. Cerebellar exam normal. Normal gait. Psych: Awake, alert, with orientation to person, place and time. Behavior, mood, and affect are within normal limits. 11:09 Eyes: Pupils: no acute changes, equal, round, and reactive to light and accomodation, Extraocular movements: intact throughout, Conjunctiva: normal, no acute changes, Corneas: are normal, no acute changes, Sclera: no appreciated abnormality, no acute changes, Anterior chamber: normal, no acute changes, Lids and lashes: edema, of the left eye, erythema, Visual guevara: are intact, Nystagmus: is not appreciated. Vital Signs: 08:39 BP 127 / 70; Pulse 90; Resp 16; Temp 98.0(TE); Pulse Ox 100% on R/A; Weight 77.11 kg; ss Height 5 ft. 6 in. (167.64 cm); Pain 7/10; 08:39 Body Mass Index 27.44 (77.11 kg, 167.64 cm) ss MDM: 10:17 Patient medically screened. [facility] 11:12 Data reviewed: vital signs, nurses notes. [facility] 11:16 Differential diagnosis: Foreign body in left eye. Data interpreted: addiction medicine physician: [facility] not applicable for this patient encounter. Pulse oximetry: on room air is 100 %. Counseling: I had a detailed discussion with the patient and/or guardian regarding: the historical points, exam findings, and any diagnostic results supporting the discharge/admit diagnosis, the need for outpatient follow up, for definitive care, an opthalmologist. 11:20 ED course: pt stable , will follow up. [facility] Administered Medications: 11:16 Drug: Bactrim (160 mg-800 mg (DS) 1 tablet Route: PO; 11:51 Follow up: Response: No adverse reaction; Medication administered at discharge. Disposition: 10/13/19 11:13 Discharged to Home. Impression: Cellulitis and acute lymphangitis of face - left upper lid stye. - Condition is Stable. - Discharge Instructions: Stye. - Prescriptions for Bactrim DS 800- 160 mg Oral Tablet - take 1 tablet by ORAL route every 12 hours for 10 days; 20 tablet. - Medication Reconciliation Form, Thank You Letter, Antibiotic Education, Prescription Opioid Use form. - Follow up: Private Physician; When: 2 - 3 days; Reason: Recheck today's complaints, Continuance of care, Re-evaluation by your physician. Follow up: Meng Maddox MD; When: 2 - 3 days; Reason: Recheck today's complaints, Re-evaluation by your physician. - Problem is new. - Symptoms have improved. Signatures: Abiola Valerio Corey, MD MD cha Smirch, Shelby, RN RN ss Corrections: (The following items were deleted from the chart) 11:18 11:13 10/13/2019 11:13 Discharged to Home. Impression: Cellulitis and acute cody lymphangitis of face - left upper lid. Condition is Stable. Forms are Medication Reconciliation Form, Thank You Letter, Antibiotic Education, Prescription Opioid Use. Follow up: Private Physician; When: 2 - 3 days; Reason: Recheck today's complaints, Continuance of care, Re-evaluation by your physician. Follow up: Meng Maddox; When: 2 - 3 days; Reason: Recheck today's complaints, Re-evaluation by your physician. Problem is new. Symptoms have improved. cody 11:23 11:18 10/13/2019 11:13 Discharged to Home. Impression: Cellulitis and acute bd lymphangitis of face - left upper lid stye. Condition is Stable. Discharge Instructions: Stye. Prescriptions for Bactrim DS 800-160 mg Oral Tablet - take 1 tablet by ORAL route every 12 hours for 10 days; 20 tablet. and Forms are Medication Reconciliation Form, Thank You Letter, Antibiotic Education, Prescription Opioid Use. Follow up: Private Physician; When: 2 - 3 days; Reason: Recheck today's complaints, Continuance of care, Re-evaluation by your physician. Follow up: Meng Maddox; When: 2 - 3 days; Reason: Recheck today's complaints, Re-evaluation by your physician. Problem is new. Symptoms have improved. cody
[2019-10-13] MEDS ORDERED: SMZ./TMP. 800/160 MG TABLET ONE (11:18)
[2019-10-13 11:28] VITALS: BP 127/70; TEMP 98; O2SAT 100
== END 2019-10-13 11:23 | disposition home or self-care (01) ==
LOC: ER 08:26
DX: H00.034 Abscess of left upper eyelid (principal); L03.212 Acute lymphangitis of face; Z88.1 Allergy status to other antibiotic agents
CPT/HCPCS: 99283

== ENCOUNTER 2020-06-07 | Emergency (ER) | payer SELFPAY ==
--- NOTE | 2020-06-07 15:54 | ER ---
Nurse's Notes [facility] Name: Tamiko Campo Age: 24 yrs Sex: Female : 1995 Arrival Date: 06/07/2020 Time: 13:10 Bed 18 Private MD: Diagnosis: Dental root caries;Dentalgia Presentation: 06/07 13:33 Chief complaint: Patient states: right top jaw pain that radiates into right ear that em started on , reports low grade fever. Coronavirus screen: Client denies travel out of the [place] in the last 14 days. Ebola Screen: Patient negative for fever greater than or equal to 101.5 degrees Fahrenheit, and additional compatible Ebola Virus Disease symptoms Patient denies exposure to infectious person. Patient denies travel to an Ebola-affected area in the 21 days before illness onset. No symptoms or risks identified at this time. Initial Sepsis Screen: Does the patient meet any 2 criteria? No. Patient's initial sepsis screen is negative. Does the patient have a suspected source of infection? Yes:. Risk Assessment: Do you want to hurt yourself or someone else? Patient reports no desire to harm self or others. Onset of symptoms was May 25, 2020. 13:33 Method Of Arrival: Ambulatory em 13:33 Acuity: MARCY 4 em Triage Assessment: 16:05 Headache History: The patient has had previous headaches and this one is similar to ll1 previous episodes. General: Appears uncomfortable, Behavior is calm, cooperative, appropriate for age. Pain: Pain began 2-3 days ago. Also complains of no other associated symptoms. Pain: Complains of pain in R jaw. 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 - Social history:: Smoking status: Patient denies any tobacco usage or history of. Patient uses street drugs, marijuana. Screenin:36 Abuse screen: Denies threats or abuse. Nutritional screening: No deficits noted. ll1 Tuberculosis screening: No symptoms or risk factors identified. 16:06 Fall Risk None identified. Total Alejandra Fall Scale indicates No Risk (0-24 pts). ll1 Assessment: 15:34 General: Appears uncomfortable, Behavior is calm, cooperative, appropriate for age. ll1 Pain: Complains of pain in R jaw Pain currently is 9 out of 10 on a pain scale. Quality of pain is described as aching, throbbing. Neuro: Level of Consciousness is awake, alert, obeys commands, Oriented to person, place, time, situation, Appropriate for age [place] are equal bilaterally Moves all extremities. Gait is steady, Speech is normal, Facial symmetry appears normal, Reports headache. Cardiovascular: No deficits noted. Respiratory: No deficits noted. EENT: Dental caries noted. Reports pain in R lower and upper jaw. 16:07 Reassessment: No changes from previously documented assessment. Patient and/or family ll1 updated on plan of care and expected duration. Pain level reassessed. Vital Signs: 13:33 BP 137 / 90; Pulse 66; Resp 16; Temp 97.8(O); Pulse Ox 100% on R/A; Weight 80.29 kg; em Height 5 ft. 6 in. (167.64 cm); Pain 7/10; 13:33 Body Mass Index 28.57 (80.29 kg, 167.64 cm) em ED Course: 13:10 Patient arrived in ED. rg4 13:35 Triage completed. em 13:35 Arm band placed on. em 15:31 Puneet Alexander [facility]. jr8 15:31 Colin Russell MD is Attending Physician. jr8 15:34 Alix Hernandez, PANKAJ is Primary Nurse. ll1 15:34 Patient placed in an exam room, on a stretcher. ll1 16:05 No provider procedures requiring assistance completed. Patient did not have IV access ll1 during this emergency room visit. 16:06 Patient has correct armband on for positive identification. Bed in low position. Call ll1 light in reach. Side rails up X 1. Cardiac monitoring not applicable on this patient. Administered Medications: No medications were administered Outcome: 15:53 Discharge ordered by . jr8 16:06 Discharged to home ambulatory. ll1 16:06 Condition: stable 16:06 Discharge instructions given to patient, Instructed on discharge instructions, follow up and referral plans. medication usage, Demonstrated understanding of instructions, follow-up care, medications, Prescriptions given X 2. 16:14 Patient left the ED. ll1 Signatures: Bill Peguero, RN RN Puneet Mejia PA PA jr8 Marj Haile4 Alix Hernandez RN RN ll1
--- NOTE | 2020-06-07 15:54 | EDPHYS ---
Physician Documentation [facility] Name: Tamiko Campo Age: 24 yrs Sex: Female : 1995 Arrival Date: 06/07/2020 Time: 13:10 Bed 18 Private MD: ED Physician Colin Russell HPI: 06/07 15:54 This 24 yrs old Black Female presents to ER via Ambulatory with complaints of Headache, jr8 Toothache, Jaw Pain. 15:54 Onset: The symptoms/episode began/occurred gradually, today. Associated signs and jr8 symptoms: The patient has no apparent associated signs or symptoms. Severity of symptoms: At its worst the pain was mild, in the emergency department the pain is unchanged. The patient has not experienced similar symptoms in the past. The patient has not recently seen a physician. Patient stated that she has a lower toothache that is causing head and neck pain. Denies fevers . 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 - Social history:: Smoking status: Patient denies any tobacco usage or history of. Patient uses street drugs, marijuana. ROS: 15:54 Eyes: Negative for injury, pain, redness, and discharge, Cardiovascular: Negative for jr8 chest pain, palpitations, and edema, Respiratory: Negative for shortness of breath, cough, wheezing, and pleuritic chest pain, Abdomen/GI: Negative for abdominal pain, nausea, vomiting, diarrhea, and constipation, Back: Negative for injury and pain, MS/Extremity: Negative for injury and deformity, Skin: Negative for injury, rash, and discoloration. 15:54 ENT: Positive for dental pain, Gum pain 15:54 Neck: Positive for pain at rest, Negative for tenderness, bony tenderness. 15:54 Neuro: Positive for headache. Exam: 15:54 Eyes: Pupils equal round and reactive to light, extra-ocular motions intact. Lids and jr8 lashes normal. Conjunctiva and sclera are non-icteric and not injected. Cornea within normal limits. Periorbital areas with no swelling, redness, or edema. Neck: Trachea midline, no thyromegaly or masses palpated, and no cervical lymphadenopathy. Supple, full range of motion without nuchal rigidity, or vertebral point tenderness. No Meningismus. Cardiovascular: Regular rate and rhythm with a normal S1 and S2. No gallops, murmurs, or rubs. Normal PMI, no JVD. No pulse deficits. Respiratory: Lungs have equal breath sounds bilaterally, clear to auscultation and percussion. No rales, rhonchi or wheezes noted. No increased work of breathing, no retractions or nasal flaring. Abdomen/GI: Soft, non-tender, with normal bowel sounds. No distension or tympany. No guarding or rebound. No evidence of tenderness throughout. Back: No spinal tenderness. No costovertebral tenderness. Full range of motion. Skin: Warm, dry with normal turgor. Normal color with no rashes, no lesions, and no evidence of cellulitis. MS/ Extremity: Pulses equal, no cyanosis. Neurovascular intact. Full, normal range of motion. Neuro: Awake and alert, GCS 15, oriented to person, place, time, and situation. Cranial nerves II-XII grossly intact. Motor strength 5/5 in all extremities. Sensory grossly intact. Cerebellar exam normal. Normal gait. 15:54 ENT: Exam is negative for earache, ear discharge, hemotympanum, TM abnormalities, epistaxis, nasal discharge, peritonsillar abscess pharyngitis, exudate, Dental exam: dental caries, that is severe, specifically in the lower right third molar (#32), gum swelling, that is mild, specifically in the upper right second bicuspid (#4) and lower right third molar (#32), pain, that is moderate, specifically in the lower right third molar (#32). Vital Signs: 13:33 BP 137 / 90; Pulse 66; Resp 16; Temp 97.8(O); Pulse Ox 100% on R/A; Weight 80.29 kg; em Height 5 ft. 6 in. (167.64 cm); Pain 7/10; 13:33 Body Mass Index 28.57 (80.29 kg, 167.64 cm) em MDM: 15:[address] [facility] 15:53 Data reviewed: vital signs, nurses notes, and as a result, I will discharge patient. [facility] Data interpreted: Pulse oximetry: on room air is 100 %. Interpretation: normal. Counseling: I had a detailed discussion with the patient and/or guardian regarding: the historical points, exam findings, and any diagnostic results supporting the discharge/admit diagnosis, the need for outpatient follow up, a dentist, to return to the emergency department if symptoms worsen or persist or if there are any questions or concerns that arise at home. Administered Medications: No medications were administered Disposition: 17:45 Co-signature as Attending Physician, Colin Russell MD I agree with the assessment and kdr plan of care. Disposition: 06/07/20 15:53 Discharged to Home. Impression: Dental root caries, Dentalgia. - Condition is Stable. - Discharge Instructions: Dental Caries, Adult, Dental Pain. - Prescriptions for Amoxicillin 875 mg Oral Tablet - take 1 tablet by ORAL route every 12 hours for 10 days; 20 tablet. Tylenol- Codeine #3 300-30 mg Oral Tablet - take 2 tablets by ORAL route every 6 hours As needed; 20 tablet. - Medication Reconciliation Form, Thank You Letter, Antibiotic Education, Prescription Opioid Use, Work release form form. - Follow up: Private Physician; When: 2 - 3 days; Reason: Recheck today's complaints, Continuance of care, Re-evaluation by your physician. - Problem is new. - Symptoms have improved. Signatures: Colin Russell MD MD [facility] Bill Peguero, RN RN Puneet Alexander PA PA jr8 Alix Hernandez RN RN ll1 Corrections: (The following items were deleted from the chart) 15:53 15:53 06/07/2020 15:53 Discharged to Home. Impression: Dental root caries. Condition is jr8 Stable. Forms are Medication Reconciliation Form, Thank You Letter, Antibiotic Education, Prescription Opioid Use. Follow up: Private Physician; When: 2 - 3 days; Reason: Recheck today's complaints, Continuance of care, Re-evaluation by your physician. Problem is new. Symptoms have improved. jr8 16:14 15:53 06/07/2020 15:53 Discharged to Home. Impression: Dental root caries; Dentalgia. ll1 Condition is Stable. Forms are Medication Reconciliation Form, Thank You Letter, Antibiotic Education, Prescription Opioid Use. Follow up: Private Physician; When: 2 - 3 days; Reason: Recheck today's complaints, Continuance of care, Re-evaluation by your physician. Problem is new. Symptoms have improved. jr8
== END 2020-06-07 16:14 | disposition home or self-care (01) ==
CPT/HCPCS: 99282